=== PATIENT | female | born 1975 | race Caucasian/White ===

== ENCOUNTER 2016-10-20 19:22 | Emergency (ER) | payer MEDICAID ==
[~2016-10-20] VITALS: Ht 160 cm; Wt 73.9 kg
[~2016-10-20 19:22] MED LIST: ATIVAN2 MG PO; BACTRIM DS 8001 TA1 PO; LEVAQUIN500 MG PO; LEXAPRO 20 MG T20 MG PO; NAPROXEN SODIU500 MG PO; TOPIRAMATE25 MG PO; ZOFRAN ODT4 MG PO
--- NOTE | 2016-10-20 19:58 | Urgent Treatment Center Report ---
History of Present Issue Date/Time Seen by Provider 10/20/161952 Visit Reason Pt arrived:Walked Presenting Problem:PT STATES SHE WOKE UP THIS AM WITH A SWOLLEN LT HAND. SHE HAS HAD VARIOUS SWOLLEN AND RED AREAS POP UP THROUGHTOUT THE DAY. PT STATES SHE TOOK 4 BENADRYL CAPS 5PM. Location if Accident: Onset of symptoms date/time:/ or onset unknown for:MEDICAL HX UNKNOWN Have you (or family members/close friends) recently traveled outside the [place]? N If Yes, where/when: Have you had exposure to infectious disease within the past month? TB? Other? Specify: Patient state that she awoke this morning and noticed that her left hand around her third finger over to her pinky area was swollen State that she also noticed that she had some welps that where on her upper arm area and around herl elbow and noticed that she had some mild swelling in her face. States that she took some benadryl earlier and it helped some and made some of the areas go away but she is still having itching and hives ALLERGIES Coded Allergies: Penicillins (08/07/16) penicillin G (08/07/16) Home Medications Reported Medications Escitalopram Oxalate (Lexapro 20MG) 20 MG PO DAILY Topiramate 25 MG PO QHS #30 History Medical History General CAD? No Angina: No VT: No Hypertension? No Hyperlipidemia? Yes CHF? No DVT? No PE? No COPD? No Asthma? No Anemia? No GERD? No Gastric ulcers? No GI Bleed? No Hernia? No Thyroid Problems? No Hypothyroidism? No CVA? No Seizures? No Diabetes? No Insulin Dependent: No Insulin Pump: No Home FSBS? No Renal Insuffiency? No UTI? Yes Stones? No BPH? No GB Disease: Yes Nephritic Syndrome? No Asplenia? No Hepatitis? No Sickle Cell Disease? No Arthritis? No Migraines? Yes Cataracts? No Glaucoma? No MRSA? No HIV? No TB? No Anxiety? No Depression? No Cancer? No More? No Immunization HX DT/Tetanus > 10 Years Ago Flu Refused Pneumonia Never Had Surgical Hx Previous Surgery?Y ADHESIONS, ENDOMETRIOSIS CHOLECYSTECTOMY HYSTERECTOMY RIGHT LEG PLATES/SCREWS SINUS SURGERY Family History Family HX Diabetes No CAD Yes Hypertension No Hyperlipidemia Yes Cancer Yes TB No Social History Smoking Hx Smoker: Current Every Day Smoker Tobacco: Yes Type Cigarettes Packs/day 1 1/2 - 2 Packs Alcohol Alcohol: No Review of Systems All Other Systems Reviewed and Negative Comment Swelling in her left hand, hives and itching Physical Exam Vital Signs Vital Signs Date Time Temp Pulse Resp B/P Pulse O2 O2 Flow FiO2 Ox Delivery Rate 10/20 2021 98.2 95 20 139/82 99 10/21 1927 98.2 95 20 139/82 99 General Appearance Patient in no distress, swelling noted on chin area Respiratory Status Yes: trachea midline, chest symmetrical. No: respiratory distress. Lung Sounds bilateral: normal breath sounds, lungs clear. 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 No Results/Orders Current Medication Orders Sig/Patricia Start time Last Medication Dose Route Stop Time Status Admin Famotidine 20 MG ONCE ONE 10/21 1999 DC 10/20 PO 10/20 Loratadine 10 MG ONCE ONE 10/21 1999 DC 10/20 PO 10/20 Methylprednisolone 125 MG ONCE ONE 10/21 1999 DC 10/20 Sodium Succinate IM 10/20 Loratadine 0 .STK-MED ONE 10/21 1955 DC PO Famotidine 0 .STK-MED ONE 10/20 1954 DC .ROUTE Methylprednisolone 0 .STK-MED ONE 10/20 1954 DC Sodium Succinate .ROUTE Progress [facility] Progress Notes Date 10/20/16 Time 2020 Comment Patient redness and hives improved along with swelling in top of left hand gone down, patient state that she feels much better than she did and not itching near as bad, hives on arms almost gone Departure Departure Time of Disposition 2021 Disposition DC Home or Self Care(routine) Clinical Impression Primary Impression: Allergic reaction Qualifiers: Encounter type: initial encounter Qualified Code: T78.40XA - Allergy, unspecified, initial encounter Condition STABLE Patient Instructions DI for Hives, Hives, Urticaria (Alternative Therapy) Additional Instructions Continue to take Benadryl as advised on bottle for itching Take Medrol dose pack as prescribed FOllow up with family doctor if needed Avoid allergans Return if needed Discharge Counseling Counseled pt/family regarding diagnosis, medications/RX, home care, follow up needs Prescriptions Current Visit Scripts Methylprednisolone (Medrol Dose Armand) 4 MG PO UD #1 ARMAND TAKE DIRECTED ON PACKAGING at 202
[2016-10-20 20:22] VITALS: BP 139/82
[2016-10-20] MEDS ORDERED: MEDROL 4MG. DOSE4 MG PO (20:25)
--- OUTSIDE RECORDS SUMMARY | 2016-10-20 22:57 | External Medical Summary Rpt ---
Demographics Preferred Language Maltese Marital Status Unknown Catholic Affiliation Unknown Race Unknown Ethnic Group Unknown Author Author BRIANA Address Unknown Phone Immunization No patient found.
--- OUTSIDE RECORDS SUMMARY | 2016-10-20 22:57 | External Medical Summary Rpt ---
Author Author , KEYON WARREN Address Unknown Phone [email or web address] Purpose Continuity of Care Document - 10-07-2016 through 2016 Results Labs Lab Lab Date Result Refere Interp Status Commen Order Detail nces retati t Range on Urinalysis macro (dipstick) panel in Urine (10-07-2016 15:27) Appeara Cloudy CLEAR complet nce of 017 ed Urine 15:27 Bilirub NEGATIV NEG complet in 017 E ed [Presen 15:27 ce] in Urine by Test strip Erythro NEGATIV NEG complet cytes 017 E ed [Presen 15:27 ce] in Urine Color YELLOW YELLOW complet of 017 ed Urine 15:27 Ketones NEGATIV NEG complet 017 E ed [Presen 15:27 ce] in Urine by Automat ed test strip Leukocy NEGATIV NEG complet te 017 E ed esteras 15:27 e [Presen ce] in Urine by Automat ed test strip Nitrite POSITIV NEG Abnorma complet 017 E l ed [Presen 15:27 ce] in Urine by Test strip Urobili 1.0 NEG complet nogen 017 ed [Presen 15:27 ce] in Urine by Test strip
--- OUTSIDE RECORDS SUMMARY | 2016-10-20 22:57 | External Medical Summary Rpt ---
Author Author PINEDARONI Gonsalez, [employer] Address Unknown Phone Unavailable Results Urinalysis macro (dipstick) panel in Urine Observa Value Referen Units Interpr Notes Date tion ce etation Range Appeara Cloudy CLEAR No No No Oct 07 nce of informa informa informa 2017 Urine tion in tion in tion in 3:27 PM source source source data data data Bilirub NEGATIV NEG No No No Oct 07 in E informa informa informa 2016 [Presen tion in tion in tion in 3:27 PM ce] in source source source Urine data data data by Test strip Erythro NEGATIV NEG No No No Oct 07 cytes E informa informa informa 2016 [Presen tion in tion in tion in 3:27 PM ce] in source source source Urine data data data Color YELLOW YELLOW No No No Oct 07 of informa informa informa 2017 Urine tion in tion in tion in 3:27 PM source source source data data data Glucose NEG No No No Oct 07 [Mass/vol informati informati informati 2016 3:27 ume] in on in on in on in PM Urine by source source source Test data data data strip Ketones NEGATIV NEG mg/dL No No Oct 07 E informa informa 2016 [Presen tion in tion in 3:27 PM ce] in source source Urine data data by Automat ed test strip pH of 5.0 - 8.5 No Normal No Oct 07 Urine informati informati 2017 3:27 on in on in PM source source data data Protein NEG mg/dL No No Oct 07 [Mass/vol informati informati 2016 3:27 ume] in on in on in PM Urine by source source Automated data data test strip Specific 1.005 - No Normal No Oct 07 gravity 1.030 informati informati 2017 3:27 of Urine on in on in PM source source data data Leukocy NEGATIV NEG No No No Oct 07 te E informa informa informa 2017 esteras tion in tion in tion in 3:27 PM e source source source [Presen data data data ce] in Urine by Automat ed test strip Nitrite POSITIV NEG No Abnorma No Oct 07 E informa l informa 2016 [Presen tion in tion in 3:27 PM ce] in source source Urine data data by Test strip Urobili 1.0 NEG E.U./dL No No Oct 07 nogen informa informa 2016 [Presen tion in tion in 3:27 PM ce] in source source Urine data data by Test strip
--- OUTSIDE RECORDS SUMMARY | 2016-10-20 22:57 | External Medical Summary Rpt ---
Author Author , KEYON WARREN Address Unknown Phone [email or web address] Purpose Continuity of Care Document - 10-07-2016 [...]
--- OUTSIDE RECORDS SUMMARY | 2016-10-20 22:57 | External Medical Summary Rpt ---
Demographics Preferred Language Algerian Marital Status Unknown Buddhism Affiliation Unknown Race Unknown Ethnic Group Unknown Author Author BRIANA Address Unknown Phone Immunization No patient found.
== END 2016-10-20 20:32 | disposition home or self-care (01) ==
LOC: UTC 19:22
DX: T78.40XA Allergy, unspecified, initial encounter (principal)

== ENCOUNTER → 2016-12-11 | Outpatient (CLI) | payer MEDICAID ==
[~2016-12-11] MED LIST changes: +MEDROL 4MG. DOSE4 MG PO
--- NOTE | 2016-12-12 09:48 | RADIOLOGY REPORT PS360 ---
ANKLE-RT-2 VIEWS HISTORY: RT. ANKLE INJECTION ORDERING PHYSICIAN: Izaiah Riggins MD PATIENT AGE: 41 years COMPARISON: None Fluoroscopy time: 0.6 minutes 4 images are submitted the C-arm showing needle placement for injection about the right tibial bone plate. IMPRESSION: Fluoroscopy utilized for prosthesis injection
== END ==
LOC: RAD 09:52
DX: M25.571 Pain in right ankle and joints of right foot (principal)

== ENCOUNTER → 2017-01-20 | Outpatient (CLI) | payer MEDICAID ==
[2017-01-20 10:04] LABS: HEMOGLOBIN 14.1 g/dL (12.2-16.2); LYMPH # 3.1 K/mm3 (0.7-4.5); LYMPH % 33.4 % (10-50.0)
[2017-01-20 11:26] LABS: BUN 8 mg/dL (7-18)
[2017-01-20 12:24] LABS: GFR (ESTIMATED) 78 ML/MIN (59-)
== END ==
LOC: LAB 09:27
PROVIDERS: Orthopaedic Surgery
DX: M25.571 Pain in right ankle and joints of right foot (principal); Z45.89 Encounter for adjustment and management of other implanted devices

== ENCOUNTER 2017-02-02 07:59 | Day surgery (SDC) | payer MEDICAID ==
[~2017-02-02] VITALS: Ht 160 cm; Wt 73.5 kg
--- NOTE | 2017-02-02 11:38 | Anesthesia Record ---
Anesthesia Record Part I Total IV fluids: 650 EBL (ml): 25 Urine Output: 0 B/P: 157/123 % SaO2: 93 Pulse: 113 Resps: 18 Temp: 97.7 Patient is: Awake, Stable Stable to PACU at: 1135 at 1137
--- NOTE | 2017-02-02 11:38 | Anesthesia Record ---
Anesthesia Record Part II Discharge time: 1205 Destination: Same day surgery PACU nurse assessment review? Yes Patient is: Stable Anesthesia complications? No at 0821
[2017-02-02 13:31] VITALS: BP 126/71
--- NOTE | 2017-02-02 13:49 | RADIOLOGY REPORT PS360 ---
ANKLE-RT-2 VIEWS HISTORY: HARDWARE REMOVEL ORDERING PHYSICIAN: Izaiah Riggins MD PATIENT AGE: 41 years COMPARISON: None FINDINGS: 2 views submitted with the C-arm shows interval removal of the distal blade plate of the tibia with removal multiple screws of the tibia and fibula. One screw shaft remains in place within the distal tibia which was at most superior aspect of the blade plate. Multiple lucent areas are present in the distal tibia and fibula from the hardware prosthesis removal. IMPRESSION: Status post hardware removal
--- NOTE | 2017-02-02 13:59 | RADIOLOGY REPORT PS360 ---
ANKLE-RT-3 VIEWS HISTORY: POST-OP HARDWARE REMOVAL ORDERING PHYSICIAN: Izaiah Riggins MD PATIENT AGE: 41 years COMPARISON: None FINDINGS: Interval removal of the distal blade plate of the tibia with removal multiple screws of the tibia and fibula. One screw shaft remains in place within the distal tibia which was at most superior aspect of the blade plate. Multiple lucent areas are present in the distal tibia and fibula from the hardware prosthesis removal. IMPRESSION: Status post hardware removal. No acute fracture. Good alignment
--- NOTE | 2017-02-03 08:25 | Operative Note ---
Procedure/Operative Record Date of Procedure: 02/02/17 Pre-op diagnosis: Retained orthopaedic hardware, LEFT tibia and LEFT fibula which is creating a pain generator for the patient Post-op diagnosis: Same Procedure performed: 1) removal of retained hardware LEFT tibia 2) removal of retained hardware LEFT fibula Surgeon: Izaiah Riggins Anesthesia: Gen. anesthetic Indications: This 41-year-old female underwent open reduction internal fixation of a distal fibula and distal tibia fracture several years ago. She has continued to have pain due to prominent hardware. She desires removal of the hardware. This is indicated to relieve pain caused by these orthopedic implants. Description of procedure: The patient was taken to the operating room and given a general anesthetic. C- arm fluoroscopy was utilized to evaluate hardware position and plan access. Due to the previous direct lateral and direct medial incisions, an anterolateral approach to the tibia was excluded. This would create minimal skin bridging and likely lead to skin necrosis. This forced us to reopen the previous incisions. We reopened the lateral incision and through this, carefully dissected tissues of the lateral tibia to expose the hardware. We removed screws securing the plate with the exception of the most proximal screw. This had broken already and the screw had only was able to be removed. We then turned attention to the medial incision and opened a portion of this to allow access to the medial plate. We removed screws here as well. The neurovascular bundle was scarred down and we felt that elevating tissue further would endanger the neurovascular bundle. For the remaining more central screw in the distal plate, we made a small percutaneous incision spread the tissues, placed a screwdriver, and removed the remaining screw through this incision. We then gently levered the plate up using an osteotome to free it from bone overgrowth and removed the plate. Prominences of bone around the screw hole were removed with a ronguer and rasped down to smooth the bone contour. The drill holes were curetted and irrigated. We then dissected more laterally to remove two screws in the fibula and also smoothed, curetted, and rasped the surrounding bone gently to smooth the prominences. We then irrigated it once again. We checked the integrity the neurovascular bundle and began closure with 2-0 Vicryl and 3-0 nylon sutures. Soft dressings were applied. The patient was then transported to the recovery room in satisfactory condition. A tourniquet had been utilized at 325 torr. Please see nurse's notes for tourniquet time. EBL (ml): 2 at 0824
== END 2017-02-02 12:50 | disposition home or self-care (01) ==
LOC: SDC 07:59
PROVIDERS: Orthopaedic Surgery
PROC: 0QPH04Z Removal of Internal Fixation Device from Left Tibia, Open Approach (ICD-10-PCS; 2017-02-02)
PROC: 0QPK04Z Removal of Internal Fixation Device from Left Fibula, Open Approach (ICD-10-PCS; principal; 2017-02-02 09:15)
DX: T84.84XA Pain due to internal orthopedic prosthetic devices, implants and grafts, initial encounter (principal); Y79.8 Miscellaneous orthopedic devices associated with adverse incidents, not elsewhere classified; Y92.9 Unspecified place or not applicable; Z79.52 Long term (current) use of systemic steroids; Z79.899 Other long term (current) drug therapy; F17.200 Nicotine dependence, unspecified, uncomplicated; F32.9 Major depressive disorder, single episode, unspecified; Z82.49 Family history of ischemic heart disease and other diseases of the circulatory system; Z80.9 Family history of malignant neoplasm, unspecified; Z88.0 Allergy status to penicillin; F41.9 Anxiety disorder, unspecified; F39 Unspecified mood [affective] disorder
CPT/HCPCS: J0131; J2405